=== PATIENT | female | born 1990 | race Caucasian/White ===

== ENCOUNTER → 2017-12-31 14:20 | Observation (INO) ==
[2017-12-31 13:56] LABS: Bilirubin,Urine Negative (Negative); Blood,Urine Negative (Negative); Clarity,Urine Cloudy (Clear); Color,Urine Yellow (Yellow); Glucose,Urine (UA) Normal (Normal); Ketones,Urine Negative (Negative); Leukocyte Esterase,Urine Large (Negative); Nitrite,Urine Negative (Negative); Protein,Urine Negative (Neg-Trace); Specific Gravity,Urine 1.018 (1.010-1.025); Urobilinogen,Urine Normal (Normal)
[2017-12-31 13:59] LABS: Bacteria,Urine Moderate per hpf (None-Few); Hyaline Casts,Urine None Seen per lpf (None-Few); Squamous Epithelial Cell,Urine Many per lpf (None-Few); WBC,Urine TNTC per hpf (0-3)
[2017-12-31 14:19] LABS: Amphetamine Screen,Urine Negative ng/mL (Cutoff=1000); Barbiturate Screen,Urine Negative ng/mL (Cutoff=200); Benzodiazepines Screen,Urine Negative ng/mL (Cutoff=200); Cannabinoid Screen,Urine Negative ng/mL (Cutoff = 50); Cocaine Screen,Urine Negative ng/mL (Cutoff= 300); Opiate Screen,Urine Negative ng/mL (Cutoff=300); Phencyclidine Screen,Urine Negative ng/mL (Cutoff=25)
[~2017-12-31 14:20] MED LIST: Ondansetron ODT 4 MG TAB.RAPDIS SL ONE
--- NOTE | 2017-12-31 14:49 | OB/GYN Progress Note ---
Date of Encounter: 12/31/17 Time of Encounter: 14:44 - Assessment and Plan (1) 36 weeks gestation of Status: Acute Urine - suspicious for UTI; start macrobid Rx given for yeast infection if develops after using antibiotics NST - reactive Discharge home with labor precautions Follow up with routine care and as needed. (2) Urinary tract infection affecting care of mother in third trimester, antepartum Status: Acute (3) NST (non-stress test) reactive Status: Acute Subjective - Subjective Principal diagnosis: Labor evaluation Interval history: Ms Flako perez at 36 weeks 4 days presents to triage with complains of back pain, nausea, and possible loss of mucous plug. Patient states good movement. She denies headache, vision changes, epigastric pain, and leaking of fluid. Antepartum ROS: new complaints, movement normal, no vaginal bleeding Objective - Vital Signs Vital Signs: Intake and Output 12/30/17 12/31/17 12/31/17 23:59 07:59 15:59 Other: Weight 76 kg Patient Weight 12/31/17 23:59 Weight 76 kg - Exam FHR: auscultation normal, category 1 FHR comments: Baseline 145 category I Uterine irritability Abdomen: Present: normal appearance, soft, gravid Uterus: Present: normal. Absent: firm, tenderness - Labs Labs: Abnormal lab results Urine Clarity Cloudy (Clear) A 12/31/17 13:23 Ur Leukocyte Esterase Large (Negative) H 12/31/17 13:23 Urine Microscopic RBC 5-15 per hpf (0-3) H 12/31/17 13:23 Urine Microscopic WBC TNTC per hpf (0-3) H 12/31/17 13:23 Ur Squamous Epith Cells Many per lpf (None-Few) H 12/31/17 13:23 Urine Bacteria Moderate per hpf (None-Few) H 12/31/17 13:23 Ur Culture Indicated? NO. (NO) A 12/31/17 13:23
== END | disposition home or self-care (01) ==
LOC: 1NENULAB
PROVIDERS: ADMIT Obstetrics & Gynecology; ATTEND Obstetrics & Gynecology

== ENCOUNTER 2018-01-18 08:00 | Inpatient (IN) ==
[2018-01-18] MEDS ORDERED: Ringers Solution, Lactated 500 ML IVC ONE (08:46)
[2018-01-18] MEDS ORDERED: EPHEDrine 50 MG/ML VIAL IVP PRN (08:46)
[2018-01-18] MEDS ORDERED: Naloxone 0.4 MG/ML INJ IVP PRN (08:47)
[2018-01-18] MEDS ORDERED: Metoclopramide 10 MG/2 ML VIAL IVP PRN (08:47)
[2018-01-18] MEDS ORDERED: *HR* Nalbuphine 10 MG/ML AMPUL IVP PRN (08:47)
[2018-01-18] MEDS ORDERED: Lidocaine 1% 20 ML MDV INFILT PRN (08:47)
[2018-01-18] MEDS ORDERED: Famotidine 20 MG/2 ML VIAL IVP PRN (08:47)
[2018-01-18] MEDS ORDERED: Oxytocin 20 units/ LR 1000 mL 20 UNIT/1,000 ML BAG IVC SCH (09:00)
[2018-01-18] MEDS ORDERED: Ringers Solution, Lactated 1,000 ML IVC SCH (09:00)
[2018-01-18] MEDS ORDERED: Epidural Premix (fent/bupiv) 110 ML EP SCH (09:00)
[2018-01-18 10:00] LABS: Basophils % 0.2 %; Eosinophils % 0.3 %; Hematocrit 32.2 % (35.3-44.9); Hemoglobin 10.7 g/dL (11.5-15.4); Immature Granulocytes % 0.6 % (0-4); Lymphocytes # 2.1 K/mcL (0.6-4.6); Lymphocytes % 15.1 %; Mean Corpuscular HGB Conc 33.2 g/dL (31.6-35.5); Mean Corpuscular Hemoglobin 29.1 pg (28.0-33.3); Mean Corpuscular Volume 87.5 fL (83.0-100.0); Mean Platelet Volume 10.3 fL (9.4-12.4); Monocytes # 0.9 K/mcL (0.0-1.3); Monocytes % 6.3 %; Neutrophils # 10.9 K/mcL (1.6-8.9); Platelet Count 204 K/mcL (140-400); Red Blood Count 3.68 M/mcL (3.82-4.97); Red Cell Distribution Width 13.6 % (11.5-14.5); Segmented Neutrophils % 77.5 %
[2018-01-18] MEDS ORDERED: miSOPROStol 25 MCG TABLET VG PRN (10:37)
[2018-01-18 11:48] LABS: Amphetamine Screen,Urine Negative ng/mL (Cutoff=1000); Barbiturate Screen,Urine Negative ng/mL (Cutoff=200); Benzodiazepines Screen,Urine Negative ng/mL (Cutoff=200); Cannabinoid Screen,Urine Negative ng/mL (Cutoff = 50); Cocaine Screen,Urine Negative ng/mL (Cutoff= 300); Opiate Screen,Urine Negative ng/mL (Cutoff=300); Phencyclidine Screen,Urine Negative ng/mL (Cutoff=25)
--- NOTE | 2018-01-18 12:54 | OB/GYN History & Physical ---
Date of Encounter: 01/18/18 Time of Encounter: 12:47 Assessment and Plan (1) 39 weeks gestation of Current visit: Yes Status: Acute (2) Intrauterine Current visit: Yes Status: Acute Admit to L&D for induction of labor 25 g Cytotec vaginally 1 Labs-CBC and clot to hold Continuous electronic monitoring Pain management plan is natural childbirth Anticipate vaginal delivery Dr. Leiva is OB precision filer hand and is available as needed (3) Intact amniotic membranes Current visit: Yes Status: Acute Qualifiers: Trimester: third trimester Qualified Code(s): Z34.93 - Encounter for supervision of normal , unspecified, third trimester History of Present Illness Chief complaint: IOL HPI: Ms. Arriola is a 27 year old female 39 weeks 1 days gestation with an estimated date of of 01/24/18 dated by early ultrasound. She presents today for elective induction of labor. She endorses good movement and denies leakage of fluid, contractions, vaginal bleeding. She is followed by Dr. Bailey during the . Her has been uncomplicated. records are available electronically and have been reviewed. Labs: A+ GBS negative Hep B negative HIV negative T. Palladium negative GC/CL negative Rubella immune Varicella immune Past Med Surg Social Fam HX - Past Medical History Medical history: no medical history Psychiatric history: anxiety, depression - Past Surgical History Surgical History: no surgical history - Social History Smoking Status: Never smoker Smokeless Tobacco Status: No Alcohol use: none Drug use: none - Family History Father Living Status: Still Living Hx Family Cardiac Disorders: Yes (htn) Obstetrical History - Pregnancies : 7 Para: 4 Term: 4 (# 3 07/16/2011, vaginal delivery, EGA 39 weeks, male, 6-14#; # 4: , 39w5d, Dr Keller, vag, boy, 8#6, "Vinayak", ; # 5: 11/25/14,male, dr. jones delivered,vaginal,7lbs 2oz,sherwin,breast feeding; # 6 9-30-16 FT,male 7lbs 8oz born in [place]) : 0 Ab's: 2 ( # 1: 07/2010, spontaneous ; # 2: 08/2010, spontaneous . ) Livin Medications and Allergies Tablet 1 tab PO DAILY 12/31/17 [History] 3 Allergy/AdvReac Type Severity Reaction Status Date / Time acetaminophen [From Tylenol] Allergy Itching Verified 02/24/15 20:16 latex Allergy Itching Verified 01/18/18 09:43 Review of System OB All systems PM: reviewed and no additional remarkable complaints except as stated Exam - Constitutional Constitutional: well developed, well nourished, no acute distress, obese - HEENT HEENT: PERRL, Normocephaly, Mucus Membranes Moist - Neck Neck exam: full ROM - Lungs Respiratory exam: CTAB - Cardiovascular Cardiovascular exam: RRR, +S1, +S2 - Breasts Breast: bilateral: normal - Abdomen Abdomen: Present: bowel sounds normal, gravid, non tender - Extremities Extremities exam: normal capillary refill, normal inspection, radial pulses palpable and symmetrical - Vulva Vulva: bilateral: normal - Vagina Vagina: Present: normal moisture - Cervix Dilation: 3 Effacement: 80 Station: -1 - Uterus Uterus exam: Present: normal size, normal contour - Adnexa Adnexa: bilateral: normal - Anus/Rectum Anus/Rectum: Present: normal perianal skin Results Result Diagrams: 01/18/18 08:48 Abnormal lab results WBC 14.1 K/mcL (4.3-11.1) H 01/18/18 08:48 RBC 3.68 M/mcL (3.82-4.97) L 01/18/18 08:48 Hgb 10.7 g/dL (11.5-15.4) L 01/18/18 08:48 Hct 32.2 % (35.3-44.9) L 01/18/18 08:48 Neutrophils # 10.9 K/mcL (1.6-8.9) H 01/18/18 08:48 All other labs normal. - VTE Reasons for not Prescribing Prophylaxis: Treatment not Indicated - Low risk for VTE
--- NOTE | 2018-01-18 17:41 | OB/GYN Progress Note ---
Date of Encounter: 01/18/18 Time of Encounter: 17:39 - Assessment and Plan (1) Elective induction of labor planned Current Visit: Yes Status: Acute (2) 39 weeks gestation of Current Visit: Yes Status: Acute expectant management Subjective - Subjective Principal diagnosis: labor Interval history: 27-year-old female at 39+1 weeks presented for elective induction of labor. Artificial rupture membranes performed with clear fluid return. Cervical exam /- Antepartum ROS: movement normal, contractions (Q2-4 min) Objective - Vital Signs Vital Signs: Intake and Output 01/18/18 01/18/18 01/18/18 07:59 15:59 23:59 Other: Weight 78.562 kg Patient Weight 01/18/18 23:59 Weight 78.562 kg - Exam FHR: category 1 Abdomen: Present: normal appearance, soft, gravid Cervical dilation: 2 cm Cervix effacement: 70% station: -1 - Labs Labs: Abnormal lab results WBC 14.1 K/mcL (4.3-11.1) H 01/18/18 08:48 RBC 3.68 M/mcL (3.82-4.97) L 01/18/18 08:48 Hgb 10.7 g/dL (11.5-15.4) L 01/18/18 08:48 Hct 32.2 % (35.3-44.9) L 01/18/18 08:48 Neutrophils # 10.9 K/mcL (1.6-8.9) H 01/18/18 08:48
--- NOTE | 2018-01-18 23:06 | OB/GYN Procedure Note ---
Delivery - Delivery Date: 01/18/18 Provider: Nan Goodman Intrapartum events: none Delivery induction: misoprostol Delivery augmentation: rupture of membranes, pitocin Delivery monitor: external FHT, external uterine Anesthesia: none Quantitated Blood Loss: 100 - Infant (s) A Delivery Date: 01/18/18 Delivery Time: 22:41 Presentation: vertex Position: RIRI Route of delivery: Gender: Male Viability: Viable Pounds: 7 Ounces: 8 Weight Gram: 3.415 kg at 1 minute: 9 at 5 mins: 9 Shoulder Dystocia: not encountered Placenta: spontaneous Cord: 3 umbilical vessels - Repair Episiotomy: none Laceration Description: None - Complications Delivery complications: none Delivery comments: This is a 27-year-old G7 now P5 who was admitted for elective induction of labor. She progressed with misoprostol induction and Pitocin augmentation with AROM to the second stage of labor. She pushed for about 10 minutes. She delivered a viable male "Prince", RIRI over an intact perineum. was placed on the maternal abdomen and was allowed to transition spontaneously. The umbilical cord was double clamped after pulsations ceased by media job titles and cut by FOB. No nuchal cord was identified. No shoulder dystocia was encountered. scores were 9 at 1 minute and 9 at 5 minutes. The weighed 7 lbs. 8 oz. (3415 g). The placenta delivered (Soares) spontaneously, intact, with a three-vessel cord. Inspection revealed no perineal, sidewall, or cervical lacerations. The uterus was firm with no active bleeding. EBL was 100 mL. Placenta and umbilical artery blood gas were not sent. There were no complications during the procedure. Mom and baby are skin to skin following delivery. - Disposition Mom disposition: stable in LDR disposition: stable in LDR
[2018-01-19] MEDS ORDERED: Ibuprofen 600 MG TABLET PO PRN (01:39)
[2018-01-19] MEDS ORDERED: Oxytocin 20 units/ LR 1000 mL 20 UNIT/1,000 ML BAG IVC SCH (01:39)
[2018-01-19] MEDS ORDERED: Benzocaine/Menthol 56 GM AEROSOL SPRAY TP PRN (01:39)
[2018-01-19] MEDS ORDERED: Acetaminophen 325 MG TABLET PO PRN (01:39)
[2018-01-19] MEDS: Prenatal Vit/FA 1 EACH TABLET PO SCH (10:16)
--- NOTE | 2018-01-19 11:16 | OB/GYN Progress Note ---
Date of Encounter: 01/19/18 Time of Encounter: 11:14 - Assessment and Plan (1) Vaginal delivery Current Visit: Yes Status: Acute Continue routine care Patient meeting day 1 milestones anticipate discharge home tomorrow (2) Breast feeding status of mother Current Visit: Yes Status: Acute support prn Subjective - Subjective Principal diagnosis: day 1 Interval history: Patient doing well. Denies any pain. Patient reports good breast feeding. Patient reports: appetite normal, voiding normally, pain well controlled, ambulating normally : doing well, nursing well Objective - Latest Vital Signs Latest vital signs: Vital Signs Temp Pulse Resp BP Pulse Ox 01/19/18 07:55 97.9 F 84 12 103/61 98 01/19/18 02:47 98.0 F 85 16 105/67 98 01/19/18 01:20 97.9 F 86 16 105/60 98 Intake and Output 01/18/18 01/19/18 01/19/18 23:59 07:59 15:59 Intake Total 400 / 400 Output Total 2300 / 2300 Balance -1900 / -1900 Intake: Oral 400 / 400 Output: Urine 2300 / 2300 Other: Stool Characteristics Normal for Patient Weight 77.2 kg Patient Weight 01/19/18 23:59 Weight 77.2 kg - Exam Lungs: bilateral: normal Chest: Normal S1, Normal S2 Extremities: Present: normal Abdomen: Present: normal appearance, soft, gravid Uterus: Present: normal, firm Uterus Position: At Umbilicus, Midline Comments: lochia light without clots - Labs Labs: Laboratory Results - last 24 hr 01/18/18 09:34 Urine Opiates Screen Negative Ur Barbiturates Screen Negative Ur Phencyclidine Scrn Negative Ur Amphetamines Screen Negative U Benzodiazepines Scrn Negative Urine Cocaine Screen Negative U Marijuana (THC) Screen Negative
[2018-01-20 08:20] VITALS: BP 118/71
[2018-01-20] MEDS: Prenatal Vit/FA 1 EACH TABLET PO SCH (08:37)
--- NOTE | 2018-01-20 09:09 | Discharge Summary ---
Date of Encounter: 01/20/18 Time of Encounter: 09:07 - Discharge Diagnosis (1) Vaginal delivery Priority: Primary Status: Acute Comments: continue routine care discharge home today follow up with Dr. Bailey in 4-6 weeks (2) Breast feeding status of mother Priority: Secondary Status: Acute Comments: support prn - Discharge Medications Prescriptions: Ibuprofen [Motrin] 600 mg PO Q6HR PRN #60 tablet PRN Reason: Cramping Breast Pump [BREAST PUMP] 1 each .ROUTE AD #1 each Home Medications: Tablet 1 tab PO DAILY 12/31/17 [History] Breast Pump [BREAST PUMP] 1 each .ROUTE AD #1 each 01/20/18 [Rx] Ibuprofen [Motrin] 600 mg PO Q6HR PRN #60 tablet 01/20/18 [Rx] Vit/FA 1 each PO DAILY tablet 01/20/18 [Rx] Allergies/Adverse Reactions: 3 Allergy/AdvReac Type Severity Reaction Status Date / Time acetaminophen [From Tylenol] Allergy Itching Verified 02/24/15 20:16 latex Allergy Itching Verified 01/18/18 09:43 Data Procedures and tests throughout hospitalization: Laboratory Tests 01/18/18 01/18/18 08:48 09:34 WBC 14.1 H RBC 3.68 L Hgb 10.7 L Hct 32.2 L MCV 87.5 MCH 29.1 MCHC 33.2 RDW 13.6 Plt Count 204 MPV 10.3 Immature Gran % 0.6 Seg Neutrophils % 77.5 Lymphocytes % 15.1 Monocytes % 6.3 Eosinophils % 0.3 Basophils % 0.2 Neutrophils # 10.9 H Lymphocytes # 2.1 Monocytes # 0.9 Eosinophils # 0.0 Basophils # 0.0 Urine Opiates Screen Negative Ur Barbiturates Screen Negative Ur Phencyclidine Scrn Negative Ur Amphetamines Screen Negative U Benzodiazepines Scrn Negative Urine Cocaine Screen Negative U Marijuana (THC) Screen Negative Ur Drug Screen Interp See Below Date of admission: 01/18/18 08:29 Primary care physician: Shivam Francois MD Consults: 01/19/18 01:39 Consult to Aquacultural Worker Supervisor [CONS] Routine Comment: Vaginal delivery, consult needed 01/19/18 02:04 Consult to Wholesale Manager [CONS] Routine Reason for SW Consult: patient states she does not have a crib for baby and she has history of depression. Discharging clinician: Laura Carlisle Anticipated date of discharge: 01/20/18 - Patient Status Disposition: Home, Self-Care Condition: Good Functional capacity at discharge: independent ambulation - Discharge Instructions Follow Up With: Shivam nieves MD [Primary Care Provider] - Arelis Bailey DO [Partnered Physician] - - Diet and Activity Activity: increase activity as tolerated Diet: regular diet Hospital Course Reason for admission: induction of labor Delivery: Episiotomy: none Other procedures: none complications: none Discharge diagnosis: IUP at term delivered [place] baby: male (breast feeding) Time Attestation: Total time spent providing and/or coordinating discharge services: Time Spent: Less than 30 minutes Exam - Constitutional Vitals: Temp Pulse Resp BP Pulse Ox 98.0 F 84 18 118/71 98 01/20/18 08:19 01/20/18 08:19 01/20/18 08:19 01/20/18 08:19 01/20/18 08:19 General appearance IM: A&O X 3, pleasant, answers questions appropriately - Respiratory Respiratory exam: Present: CTAB - Cardiovascular Cardiovascular exam IM: Present: RRR, +S1, +S2 - GI/Abdominal GI/Abdominal exam IM: normal bowel sounds - Uterine Tone: Firm Uterus Position: 1 Finger Below Umbilicus, Midline - Extremities Exam Extremities exam IM: Present: full ROM, normal capillary refill, normal inspection - Neurological Exam Neurological exam: alert, oriented X3, reflexes normal
== END 2018-01-20 11:08 | disposition home or self-care (01) | DRG 560 ==
LOC: 1NENULAB 08:29 → 1NENUOBS 01-19 01:18
PROVIDERS: ADMIT Advanced Practice Midwife; ATTEND Advanced Practice Midwife